=== PATIENT | male | born 1950 | race Caucasian/White ===

== ENCOUNTER 2021-05-10 18:38 | Inpatient (IN) | payer OTHER ==
[~2021-05-10] VITALS: Ht 180.3 cm; Wt 121.6 kg
[2021-05-10 18:48] VITALS: BP 126/65
[2021-05-10] MEDS ORDERED: LIPITOR40 MG PO (19:36)
[2021-05-10] MEDS ORDERED: ALLOPURINOL 10100 M1 PO (19:36)
[2021-05-10] MEDS ORDERED: FLOMAX0.4 MG PO (19:36)
[2021-05-10] MEDS ORDERED: VITAMIN D350 MCG PO (19:36)
[2021-05-10] MEDS ORDERED: BUMETANIDE 1 MG1 M1 PO (19:37)
[2021-05-10] MEDS ORDERED: ELIQUIS5 MG PO (19:37)
[2021-05-10] MEDS ORDERED: KLOR-CON M2020 MEQ PO (19:37)
[2021-05-10] MEDS ORDERED: MAXZIDE-25 MG1 EACH PO (19:37)
[2021-05-10 20:01] LABS: ABSOLUTE LYMPHOCYTES 0.6 thou/uL (0.8-5.3); ABSOLUTE MONOCYTES 0.6 thou/uL (0.0-1.2); ABSOLUTE NEUTROPHILS 6.2 thou/uL (1.6-8.1); BASOPHILS 0.1 %; HEMATOCRIT 43.5 % (42.0-52.0); HEMOGLOBIN 14.9 gm/dL (14.0-18.0); LYMPHOCYTES 8.2 %; MCH 28.9 pg (26.0-34.0); MCHC 34.4 g/dL (28.0-37.0); MONOCYTES 8.5 %; MPV 8.6 fl. (7.2-11.1); NUCLEATED RBCS 0 /100WBC; PLATELET COUNT* 150 thou/uL (150-400); POLYS 83.2 %; RBC 5.18 mil/uL (4.50-6.00); RDW-CV 14.8 % (10.5-14.5); WBC 7.4 thou/uL (4.0-11.0)
[2021-05-10 20:07] LABS: CALCIUM 8.4 mg/dL (8.5-10.1); CREATININE 2.5 mg/dL (0.6-1.3); POTASSIUM 3.2 mmol/L (3.5-5.1)
[2021-05-10 20:11] LABS: ALBUMIN 3.5 g/dL (3.4-5.0); MAGNESIUM 2.4 mg/dL (1.8-2.4); TOTAL BILIRUBIN 1.1 mg/dL (<0.1-1.0); TOTAL PROTEIN 8.3 g/dL (6.4-8.2)
[2021-05-10 20:38] LABS: BE 2.9 mmol/L (-2 to +3); PCO2 33.1 mmHg (35.0-45.0); PO2 98.9 mmHg (75.0-100.0); pH 7.504 (7.340-7.450)
[2021-05-10 21:11] LABS: URINE BILIRUBIN NEGATIVE (Negative); URINE BLOOD TRACE (Negative); URINE CLARITY CLEAR; URINE COLOR YELLOW; URINE GLUCOSE-RANDOM NEGATIVE (Negative); URINE KETONES NEGATIVE (Negative); URINE LEUKOCYTES-REFLEX NEGATIVE (Negative); URINE NITRITE-REFLEX NEGATIVE (Negative); URINE PROTEIN NEGATIVE (Negative); URINE UROBILINOGEN 0.2 E.U./dl (0.2-1.0)
[2021-05-10 21:50] LABS: INFLUENZA A ANTIGEN Negative (Negative); INFLUENZA B ANTIGEN Negative (Negative)
[2021-05-11] VITALS (7 sets, daily range): BP systolic 110–138; BP diastolic 44–71
[2021-05-12 04:00] VITALS: BP 113/44; BP 120/61
[2021-05-12 04:40] LABS: HEMATOCRIT 35.7 % (42.0-52.0); MCH 28.9 pg (26.0-34.0); MCHC 34.7 g/dL (28.0-37.0); MCV 83.5 fL (80.0-100.0); MPV 8.1 fl. (7.2-11.1); RBC 4.28 mil/uL (4.50-6.00); RDW-CV 14.6 % (10.5-14.5); WBC 6.5 thou/uL (4.0-11.0)
[2021-05-12 04:59] LABS: CALCIUM 7.4 mg/dL (8.5-10.1); CREATININE 1.7 mg/dL (0.6-1.3)
[2021-05-12 05:14] LABS: HEMOGLOBIN 12.4 gm/dL (14.0-18.0)
[2021-05-12 09:50] VITALS: BP 123/62
--- NOTE | 2021-05-12 10:36 | EKG ---
[place] [address] ELECTROCARDIOGRAM REPORT Name: EUGENIEANIRUDH R Room: [place] [address] ADM IN .R.#: [id number] Admission: 05/10/21 Attend Phys: Vicky Marroquin Discharge: Date of : 46 Date of Service: 05/10/211920 Report #: [id number] THIS REPORT FOR: //name// [facility] ED Test Date: 2021-05-10 Test Time: 19:21:28 Pat Name: ANIRUDH TRAORE Department: Room: [facility] Gender: M Import/Export Analyst: : 1950 Requested By: Elizabeth Farfan Order Number: [id number] MD: Marcin Leavitt Measurements Intervals [place] Rate: 93 P: 32 NE: 145 QRS: -54 QRSD: 134 T: -12 QT: 408 QTc: 508 Interpretive Statements Sinus rhythm artifact noted Right bundle branch block No previous ECG available for comparison Electronically Signed On 05-12-2021 10:36:00 MARKETING COMM[employer]ICATIONS MANAGER by Marcin Leavitt [email or web address] <ELECTRONICALLY SIGNED> By: Marcin Leavitt MD, FACC 05/12/21 1036 20 20 Marcin Leavitt MD, FAC /EPI
[2021-05-12 12:51] VITALS: BP 132/78
[2021-05-12 20:05] VITALS: BP 99/54
[2021-05-13 00:51] VITALS: BP 104/52
[2021-05-13 04:00] VITALS: BP 93/42
[2021-05-13 04:06] LABS: HEMOGLOBIN 12.6 gm/dL (14.0-18.0); MCH 28.8 pg (26.0-34.0); MCHC 34.1 g/dL (28.0-37.0); MCV 84.6 fL (80.0-100.0); RBC 4.38 mil/uL (4.50-6.00); RDW-CV 14.5 % (10.5-14.5)
[2021-05-13 04:40] LABS: ALBUMIN 2.5 g/dL (3.4-5.0); CALCIUM 7.4 mg/dL (8.5-10.1); CREATININE 1.6 mg/dL (0.6-1.3); MAGNESIUM 2.4 mg/dL (1.8-2.4); POTASSIUM 3.1 mmol/L (3.5-5.1); TOTAL BILIRUBIN 0.6 mg/dL (<0.1-1.0); TOTAL PROTEIN 6.3 g/dL (6.4-8.2)
[2021-05-13 09:37] VITALS: BP 141/65
[2021-05-13 11:55] VITALS: BP 134/59
[2021-05-13 15:40] LABS: MAGNESIUM 2.5 mg/dL (1.8-2.4); POTASSIUM 3.5 mmol/L (3.5-5.1)
[2021-05-13 17:02] VITALS: BP 141/63
[2021-05-13 21:30] VITALS: BP 107/71
[2021-05-14] VITALS: BP 143/63
[2021-05-14 04:34] VITALS: BP 114/54
[2021-05-14 08:00] VITALS: BP 104/64
[2021-05-14] MEDS ORDERED: DOXYCYCLINE 10100 MG PO (10:42)
[2021-05-14] MEDS ORDERED: DEXAMETHASONE 22 M1 PO (10:42)
[2021-05-14] MEDS ORDERED: CEFDINIR300 MG PO (10:42)
[2021-05-14 11:30] VITALS: BP 138/65
[2021-05-14 12:55] VITALS: BP 138/65
== END 2021-05-14 16:00 | disposition home health service (06) | DRG 177 ==
LOC: M.ERS 18:38 → M.TBA-ER 21:58 → M.ORTHSURG 21:58
PROVIDERS: Internal Medicine; Personal Emergency Response Attendant; ADMIT Internal Medicine; ATTEND Internal Medicine
PROC: XW033E5 Introduction of Remdesivir Anti-infective into Peripheral Vein, Percutaneous Approach, New Technology Group 5 (ICD-10-PCS; principal; 2021-05-10)
DX: U07.1 COVID-19 (principal); N17.0 Acute kidney failure with tubular necrosis; J12.82 Pneumonia due to coronavirus disease 2019; E87.1 Hypo-osmolality and hyponatremia; I48.91 Unspecified atrial fibrillation; I95.9 Hypotension, unspecified; Z96.653 Presence of artificial knee joint, bilateral; E86.0 Dehydration; Z20.822 Contact with and (suspected) exposure to COVID-19; E87.6 Hypokalemia; Z86.718 Personal history of other venous thrombosis and embolism; Z79.899 Other long term (current) drug therapy